=== PATIENT | female | born 1995 | race African-American/Black ===

== ENCOUNTER 2017-04-05 10:01 | Inpatient (IN) | payer MEDICAID ==
[2017-04-05 10:43] LABS: AMNISURE (ROM) POSITIVE (NEGATIVE)
[2017-04-05 10:47] LABS: APPEARANCE,URINE CLOUDY; BILIRUBIN,URINE NEGATIVE (NEGATIVE); COLOR,URINE YELLOW; GLUCOSE, URINE NEGATIVE (NEGATIVE); KETONES,URINE NEGATIVE (NEGATIVE); LEUKOCYTE ESTERASE,URINE TRACE (NEGATIVE); NITRITE,URINE NEGATIVE (NEGATIVE); PROTEIN,URINE NEGATIVE (NEGATIVE)
[2017-04-05 11:03] LABS: URINE AMPHETAMINES SCREEN NEGATIVE; URINE BARBITURATES SCREEN NEGATIVE; URINE BENZODIAZEPINES SCREEN NEGATIVE; URINE COCAINE SCREEN NEGATIVE; URINE MARIJUANA (THC) SCREEN NEGATIVE; URINE METHADONE SCREEN NEGATIVE; URINE PHENCYCLIDINE SCREEN NEGATIVE
[2017-04-05] MEDS ORDERED: RINGERS SOLUTION,LACTATED 1,000 ML IV PRN (11:19)
[2017-04-05] MEDS ORDERED: OXYTOCIN/NORMAL SALINE 20 UNIT/1,000 ML RTUINJ ONE ×2 (11:40→23:27)
[2017-04-05 11:46] LABS: ABSOLUTE LYMPHOCYTES (AUTO) 1.4 10^3/uL (0.5-4.7); ABSOLUTE MONOCYTES (AUTO) 0.5 10^3/uL (0.1-1.4); ABSOLUTE NEUT (AUTO) 5.5 10^3/uL (1.7-8.2); BASOPHILS % (AUTO) 0.3 % (0-2); EOSINOPHILS % (AUTO) 0.2 % (0-6); HEMOGLOBIN 11.1 g/dL (12.0-15.5); LYMPHOCYTES % (AUTO) 19.4 % (13-45); MEAN CORPUSCULAR HEMOGLOBIN 30.7 pg (27.0-33.4); MEAN CORPUSCULAR HGB CONC 33.5 g/dL (32.0-36.0); MEAN CORPUSCULAR VOLUME 92 fl (80-97); MONOCYTES % (AUTO) 6.6 % (3-13); PLATELET COUNT 212 10^3/uL (150-450); RED CELL DISTRIBUTION WIDTH 13.7 % (11.5-14.0); SEGMENTED NEUTROPHILS % (AUTO) 73.5 % (42-78); TOTAL CELLS COUNTED % (AUTO) 100 %; WHITE BLOOD COUNT 7.5 10^3/uL (4.0-10.5)
[2017-04-05] MEDS ORDERED: OXYTOCIN/NORMAL SALINE 20 UNIT/1,000 ML RTUINJ IV PRN (12:06)
[2017-04-05] MEDS ORDERED: PROMETHAZINE HCL INJ 25 MG/1 ML VIAL ONE (17:26)
[2017-04-05] MEDS ORDERED: NALBUPHINE HCL INJ 10 MG/1 ML AMPULE ONE (17:26)
[2017-04-05] MEDS ORDERED: EPHEDRINE SULFATE INJ 50 MG/1 ML AMPULE ONE (20:16)
[2017-04-05] MEDS ORDERED: FENTANYL CITRATE INJ/PF 100 MCG/2 ML AMPUL ONE (20:16)
[2017-04-05] MEDS ORDERED: PHENYLEPHRINE HCL INJ/PF 10 MG/1 ML SDV ONE (20:16)
[2017-04-05] MEDS ORDERED: BUPIVACAINE HCL 0.25 % INJ/PF (2.5 MG/1 ML) 30 ML VIAL ONE (20:17)
[2017-04-05] MEDS ORDERED: FENTANYL/BUPIVACAINE/NS/PF 200 MCG/100 ML RTUINJ EPI ONE (20:17)
[2017-04-05] MEDS ORDERED: LIDOCAINE 1% INJ-PF (10 MG/ML) 30 ML SDV ONE (23:15)
[2017-04-05] MEDS ORDERED: MISOPROSTOL 0.1 MG TABLET ONE (23:15)
[2017-04-05] MEDS ORDERED: MISOPROSTOL 0.2 MG TABLET ONE (23:31)
[2017-04-06] MEDS ORDERED: DIBUCAINE 1% OINTMENT 28 GM TP PRN (02:06)
[2017-04-06] MEDS ORDERED: GLYCERIN/WITCH HAZEL LEAF 1 EACH MED..PAD TP PRN (02:06)
[2017-04-06] MEDS ORDERED: DIPHENHYDRAMINE HCL 25 MG CAPSULE PO PRN (02:06)
[2017-04-06] MEDS ORDERED: ACETAMINOPHEN WITH CODEINE #3 TABLET PO PRN ×2 (02:06)
[2017-04-06] MEDS ORDERED: NA PHOS,M-B/NA PHOS,DI-BA (ADULT) 133 ML ENEMA PR PRN (02:06)
[2017-04-06] MEDS ORDERED: ZOLPIDEM TARTRATE 5 MG TABLET PO PRN (02:06)
[2017-04-06] MEDS ORDERED: PSEUDOEPHEDRINE HCL 30 MG TABLET PO PRN (02:06)
[2017-04-06] MEDS ORDERED: MEASLES,MUMPS&RUBELLA VACC/PF 0.5 ML VIAL SUBCUT PRN (02:06)
[2017-04-06] MEDS ORDERED: PROMETHAZINE HCL 25 MG SUPP.RECT PR PRN (02:06)
[2017-04-06] MEDS ORDERED: MAGNESIUM HYDROXIDE SUSP 30 ML UDCUP PO PRN (02:06)
[2017-04-06] MEDS ORDERED: PROMETHAZINE HCL INJ 25 MG/1 ML VIAL IV PRN (02:06)
[2017-04-06] MEDS ORDERED: ACETAMINOPHEN 650 MG SUPP.RECT PR PRN (02:06)
[2017-04-06] MEDS ORDERED: DIPH/PERTUSS(ACELL)/TETANUS VAC/PF 0.5 ML SYR (>=10YO) IM PRN (02:06)
[2017-04-06] MEDS ORDERED: PROMETHAZINE HCL 25 MG TABLET PO PRN (02:06)
[2017-04-06] MEDS ORDERED: BENZOCAINE/MENTHOL AEROSOL SPRAY 56 ML TOP PRN (02:06)
--- NOTE | 2017-04-06 02:13 | Delivery Summary ---
Del Sum A-C Datetime Report Generated by CPN: 04/06/2017 02:12 DELIVERY PERSONNEL DELIVERY PERSONNEL: [id number] Delivery Doctor:: Serjio Ellison MD Labor and Delivery Nurse:: Verito Carranza RN Labor and Delivery Nurse:: Eugenia Caban RN Fulling Mill Operator/REHAB CONSULTANT: Ginger Zoieekom, WAXED BAG MACHINE OPERATOR MATERNAL INFORMATION Delivery Anesthesia: Epidural Medications After Delivery: Pitocin Drip 20 Units/1000ml NSS; Other-Please Comment Meds After Delivery Comment: Lidocaine 1% Estimated Blood Loss (ml): 200 Maternal Complications: Precipitous Labor (<3hrs) Provider Comments: MELI LABOR SUMMARY EDC: 04/08/2017 00:00 No. Babies in Womb: 1 Attempted: No LABOR INFORMATION Reason for Induction: Premature Rupture of Membranes Onset of Labor: 04/05/2017 21:18 Complete Dilatation: 04/05/2017 23:33 Oxytocin: Induction Group B Beta Strep: Negative (Annotations: Data stored by N on behalf of user) Antibiotics # of Doses: 0 Antibiotics Time of Last Dose: n/a Name of Antibiotic Given: n/a Steroids Given: None Reason Steroids Not Administered: Not Applicable MEMBRANES Membranes Rupture Method: Spontaneous Rupture of Membranes: 04/05/2017 09:00 Length of Rupture (hr): 14.77 Amniotic Fluid Color: Clear Amniotic Fluid Amount: Small Amniotic Fluid Odor: Normal STAGES OF LABOR Stage 1 hr: 2 Stage 1 min: 15 Stage 2 hr: 0 Stage 2 min: 13 Stage 3 hr: 0 Stage 3 min: 3 Total Time in Labor hr: 2 Total Time in Labor min: 31 VAGINAL DELIVERY Episiotomy: None Laceration #1: Perineal Laceration Extension #1: Second Degree Laceration Repair: Yes Laceration Repair Note: repaired with 2-0 vycril Sponge Count Correct: Yes Sharps Count Correct: Yes CSECTION DELIVERY Primary Indication: N/A Secondary Indication: N/A CSection Incidence: N/A Labor: N/A Elective: N/A CSection Incision: N/A BABY A INFORMATION Infant Delivery Date/Time: 04/05/2017 23:46 Method of Delivery: Vaginal Born in Route : No : N/A Forceps: N/A Vacuum Extraction: N/A Shoulder Dystocia : No PRESENTATION/POSITION BABY A Presentation: Cephalic Cephalic Presentation: Vertex Vertex Position: Right Occipital Anterior Breech Presentation: N/A PLACENTA INFORMATION BABY A Placenta Delivery Time : 04/05/2017 23:49 Placenta Method of Delivery: Spontaneous Placenta Status: Delivered SCORES BABY A Heart Rate 1 min: >100 bpm Resp Effort 1 min: Good Cry Reflex Irritability 1 min: Cough or Sneeze or Pulls Away Muscle Tone 1 min: Active Motion Color 1 min: Body [place], Extremities Blue Resuscitation Effort 1 min: Tactile Stimulation SCORE 1 MIN: 9 Heart Rate 5 min: >100 bpm Resp Effort 5 min: Good Cry Reflex Irritability 5 min: Cough or Sneeze or Pulls Away Muscle Tone 5 min: Active Motion Color 5 min: Body [place], Extremities Blue Resuscitation Effort 5 min: Tactile Stimulation SCORE 5 MIN: 9 INFANT INFORMATION BABY A Gestational Age at Delivery: 39.4 Gestational Status: Full Term- 39- 40.6 Weeks Outcome : Liveborn Infant Condition : Stable Infant Sex: Female IDENTIFICATION BABY A Verification Date/Time: 04/06/2017 01:29 ID Band Number: [id number] Mother's Name Verified: Yes Infant RN Verifying Infant: B Caban, RN Additional Verifying Personnel: M Denton, RN WEIGHT/LENGTH BABY A Infant Birthweight (gm): 3025 Weight (lb): 6 Infant Weight (oz): 11 Length (in): 19.50 Length (cm): 49.53 CORD INFORMATION BABY A No. Cord Vessels: 3 Nuchal Cord : N/A Cord Blood Taken: Yes-For Storage (Mom's Blood type +) Infant Suction: None ASSESSMENT BABY A Complications: None Physical Findings at Delivery: Within Normal Limits; Extra Digit(s) Respirations: Appears Normal Skin to Skin: Yes Lay Out Machine Operator/ALS Called : No Infant Care By: B. Caban RN Transferred To: Remains with Mother BABY B INFORMATION : N/A SIGNATURES Signature: with User ID: [email or web address]
--- NOTE | 2017-04-06 02:17 | Admission Physical ---
Datetime Report Generated by CPN: 04/06/2017 02:17 CURRENT ADMISSION Chief Complaint: Suspected Ruptured Membranes Indication for Induction: Not Applicable Indication for Induction: Term, Intrauterine Admit Plan: Initiate Labor Augmentation Protocol ALLERGIES Medication Allergies: No Medication Allergies: No Known Allergies (04/05/2017) Latex: No Latex Allergies OBSTETRICAL HISTORY EDC: 04/08/2017 00:00 : 1 Para: 0 Term: 0 : 0 SAB: 0 IAB: 0 Ectopic: 0 Livin Cesareans: 0 VBACs: 0 Multiple Births: 0 Gestational Diabetes: No Rh Sensitization: No Incompetent Cervix: No JOHANA: No Infertility: No ART Treatment: No Uterine Anomaly: No IUGR: No Hx Previous C/S: No Macrosomia: No Hx Loss/Stillborn: No PIH: No Hx : No Placenta Previa/Abruption: No Depression/PP Depression: No PTL/PROM: No Post Hemorrhage: No Current Procedures: Ultrasound Obstetrical History Comments: G1- Current SEE RECORDS Alcohol: No Marijuana : No Cocaine: No Other Illicit Drugs: No Cigarettes: Never Smoker. [id number] MEDICAL HISTORY Diabetes: No Blood Transfusion: No Pulmonary Disease (Asthma, TB): No Breast Disease: No Hypertension: No Head Of History Surgery: No Heart Disease: No Hosp/Surgery: No Autoimmune Disorder: No Anesthetic Complications: No Kidney Disease: No Abnormal Pap Smear: No Neuro/Epilepsy: No Psychiatric Disorders: No Other Medical Diseases: No Hepatitis/Liver Disease: No Significant Family History: No Varicosities/Phlebitis: No Trauma/Violence : No Thyroid Dysfunction: No INFECTIOUS HISTORY Gonorrhea: No Genital Herpes: No Chlamydia: No Tuberculosis: No Syphilis: No Hepatitis: No HIV/AIDS Exposure: No Rash or Viral Illness: No HPV: No PHYSICAL EXAM General: Normal HEENT: Normal Neurologic: Normal Thyroid: Normal Heart: Normal Lungs: Normal Breast: Deferred Back: Normal Abdomen: Normal Genitourinary Exam: Normal Extremities: Normal DTRs: Normal Pelvic Type: Adequate Physical Exam Comments: SROM FETUS A EGA: 39.4 Monitoring: External US Decelerations: None PLANS FOR LABOR AND DELIVERY Labor and Delivery: None Pain Management: Natural Feeding Preference: Formula Benefit of Breast Feed Discussed: Yes Circumcision: N/A INFORMED CONSENT Signature: with User ID: [email or web address]
[2017-04-06] MEDS: IBUPROFEN 800 MG TABLET PO SCH ×3 (05:05→21:10)
--- NOTE | 2017-04-06 10:10 | PDOC PROGRESS REPORT ---
Subjective-OB Subjective: Post Delivery Day: 21 year old. Denies any needs at this time Doing well, family at BS, breast feeding, voiding, baby has extra digits, asking about plan for them, will discuss with Peds Physical Exam (OB) Vital Signs: Temp Pulse Resp BP Pulse Ox 98.3 F 74 18 140/56 H 100 04/06/17 09:20 04/06/17 07:30 04/06/17 07:30 04/06/17 07:30 04/06/17 07:30 Intake & Output 04/05/17 04/06/17 04/07/17 06:59 06:59 06:59 Weight 59.5 kg - Lochia Lochia Amount: Small 10-25 ml Lochia Color: Rubra/Red - Abdomen Description: Soft, Round Fundal Description: Firm, Midline Fundal Height: u/u - u/2 Objective-Diagnostic Laboratory: 04/05/17 11:24 04/05/17 04/05/17 04/05/17 10:10 11:24 11:24 WBC 7.5 RBC 3.60 L Hgb 11.1 L Hct 33.0 L MCV 92 MCH 30.7 MCHC 33.5 RDW 13.7 Plt Count 212 Seg Neutrophils % 73.5 Lymphocytes % 19.4 Monocytes % 6.6 Eosinophils % 0.2 Basophils % 0.3 Absolute Neutrophils 5.5 Absolute Lymphocytes 1.4 Absolute Monocytes 0.5 Absolute Eosinophils 0.0 Absolute Basophils 0.0 Urine Color YELLOW Urine Appearance CLOUDY Urine pH 5.0 Ur Specific Hanna 1.010 Urine Protein NEGATIVE Urine Glucose (UA) NEGATIVE Urine Ketones NEGATIVE Urine Blood NEGATIVE Urine Nitrite NEGATIVE Ur Leukocyte Esterase TRACE H Blood Type O POSITIVE Antibody Screen NEGATIVE Assessment and Plan(PN) - Assessment and Plan (1) Vaginal delivery Is this a current diagnosis for this admission?: Yes - Time Spent with Patient Time with patient: Less than 15 minutes Medications reviewed and adjusted accordingly: Yes - Disposition Anticipated Discharge: Home Within: within 48 hours
[2017-04-06] MEDS: SENNOSIDES/DOCUSATE 8.6-50 MG 1 EACH TABLET PO SCH (10:56)
[2017-04-06] MEDS: DOCUSATE SODIUM 100 MG CAPSULE PO SCH ×2 (10:57→17:50)
[2017-04-06] MEDS: FAMOTIDINE 20 MG TABLET PO SCH ×2 (10:57→21:10)
[2017-04-06] MEDS: PRENATAL VITAMIN W DHA CAPSULE PO SCH (10:58)
[2017-04-06] MEDS: FERROUS SULFATE 325 MG TABLET PO SCH ×2 (10:58→17:50)
[2017-04-07] MEDS: IBUPROFEN 800 MG TABLET PO SCH (06:55)
[2017-04-07 08:28] VITALS: BP 119/68
[2017-04-07] MEDS: PRENATAL VITAMIN W DHA CAPSULE PO SCH (09:00)
[2017-04-07] MEDS: FAMOTIDINE 20 MG TABLET PO SCH (09:00)
[2017-04-07] MEDS: SENNOSIDES/DOCUSATE 8.6-50 MG 1 EACH TABLET PO SCH (09:00)
[2017-04-07] MEDS: DOCUSATE SODIUM 100 MG CAPSULE PO SCH (09:01)
[2017-04-07] MEDS: FERROUS SULFATE 325 MG TABLET PO SCH (09:01)
--- NOTE | 2017-04-07 10:07 | PDOC PROGRESS REPORT ---
Subjective-OB Subjective: Post Delivery Day: 21 year old. Denies any needs at this time Doing well, no c/o, voiding, ambulating, Physical Exam (OB) Vital Signs: Temp Pulse Resp BP Pulse Ox 98.5 F 86 16 119/68 100 04/07/17 07:58 04/07/17 07:58 04/07/17 07:58 04/07/17 07:58 04/07/17 07:58 Intake & Output 04/06/17 04/07/17 04/08/17 06:59 06:59 06:59 Weight 59.5 kg - PIH/Pre-Eclampsia Clonus: Negative Headache: Absent Epigastric Pain: No Visual Changes: No - Lochia Lochia Amount: Scant < 10 ml Lochia Color: Rubra/Red - Abdomen Description: Soft Hernia Present: No Fundal Description: Firm, Midline Fundal Height: u/u - u/2 Assessment and Plan(PN) - Assessment and Plan (1) Vaginal delivery Is this a current diagnosis for this admission?: Yes - Time Spent with Patient Time with patient: Less than 15 minutes Medications reviewed and adjusted accordingly: Yes - Disposition Anticipated Discharge: Home Within: Other - home today
--- NOTE | 2017-04-07 10:10 | PDOC DISCHARGE SUMMARY ---
Final Diagnosis Discharge Date: 04/07/17 - Final Diagnosis (1) Vaginal delivery Is this a current diagnosis for this admission?: Yes Discharge Data - Discharge Medication Home Medications: Prenat 115/Iron Fum/Folic/Dss [ 19 Tablet] 1 tab PO DAILY 04/05/17 Gestational Age: 39.4 Reason(s) for Admission: Induction of Labor, PROM Procedures: NST, Ultrasound Intrapartum Procedure(s): Spontaneous Vaginal Delivery Complication(s): Laceration-Perineal Laceration-Degree: 2nd - Data Baby 1 Female at 1 minute: 9 at 5 minutes: 9 Weight: 3.033 kg Home with Mother: Yes Complications: No - Diagnosis Test Laboratory: Temp Pulse Resp BP Pulse Ox 98.5 F 86 16 119/68 100 04/07/17 07:58 04/07/17 07:58 04/07/17 07:58 04/07/17 07:58 04/07/17 07:58 04/05/17 04/05/17 10:10 11:24 RBC 3.60 L Hgb 11.1 L Hct 33.0 L Urine Opiates Screen NEGATIVE - Discharge information/Instructions Discharge Activity: Activity As Tolerated, No Lifting/Push/Pulling, Pelvic Rest Discharge Diet: As Tolerated, Regular Disposition: HOME, SELF-CARE Follow up with: [facility] in: 4, Weeks
[2017-04-07 10:12] LABS: HEMATOCRIT 27.9 % (36.0-47.0); MEAN CORPUSCULAR HEMOGLOBIN 30.4 pg (27.0-33.4); MEAN CORPUSCULAR VOLUME 92 fl (80-97); PLATELET COUNT 185 10^3/uL (150-450); RED BLOOD COUNT 3.03 10^6/uL (3.72-5.28); RED CELL DISTRIBUTION WIDTH 14.1 % (11.5-14.0)
[2017-04-07 10:13] LABS: HEMOGLOBIN 9.2 g/dL (12.0-15.5)
[2017-04-07 10:28] LABS: WHITE BLOOD COUNT 16.1 10^3/uL (4.0-10.5)
== END 2017-04-07 12:23 | disposition home or self-care (01) | DRG 775 ==
LOC: LC 10:01 → LR 10:58 → 2S 04-06 02:16
PROVIDERS: ADMIT Obstetrics & Gynecology Gynecology; ATTEND Obstetrics & Gynecology Gynecology
PROC: 10E0XZZ Delivery of Products of Conception, External Approach (ICD-10-PCS; principal; 2017-04-05)
PROC: 0KQM0ZZ Repair Perineum Muscle, Open Approach (ICD-10-PCS; 2017-04-05)
DX: O62.3 Precipitate labor (principal); O99.02 Anemia complicating childbirth; D57.3 Sickle-cell trait; O70.1 Second degree perineal laceration during delivery; Z3A.39 39 weeks gestation of pregnancy; Z37.0 Single live birth
CPT/HCPCS: 36415; 59025; 80307; 81005; 84112; 85025; 85027; 86592; 86850; 86900; 86901; 94760; J2300; J2370; J2550; J2590; J3010; J3490

== ENCOUNTER 2018-09-01 16:39 | Inpatient (IN) | payer MEDICAID ==
[2018-09-01] MEDS ORDERED: DINOPROSTONE 10 MG VAGINAL INSERT.SR PV PRN (18:22)
[2018-09-01] MEDS ORDERED: RINGERS SOLUTION,LACTATED 300 ML IV ONE (18:22)
[2018-09-01 18:37] LABS: ABSOLUTE LYMPHOCYTES (AUTO) 1.5 10^3/uL (0.5-4.7); ABSOLUTE MONOCYTES (AUTO) 0.4 10^3/uL (0.1-1.4); ABSOLUTE NEUT (AUTO) 5.3 10^3/uL (1.7-8.2); BASOPHILS % (AUTO) 0.1 % (0-2); EOSINOPHILS % (AUTO) 0.2 % (0-6); HEMATOCRIT 29.9 % (36.0-47.0); HEMOGLOBIN 10.1 g/dL (12.0-15.5); LYMPHOCYTES % (AUTO) 20.4 % (13-45); MEAN CORPUSCULAR HEMOGLOBIN 30.7 pg (27.0-33.4); MEAN CORPUSCULAR HGB CONC 33.8 g/dL (32.0-36.0); MEAN CORPUSCULAR VOLUME 91 fl (80-97); MONOCYTES % (AUTO) 5.4 % (3-13); PLATELET COUNT 221 10^3/uL (150-450); RED CELL DISTRIBUTION WIDTH 13.1 % (11.5-14.0); SEGMENTED NEUTROPHILS % (AUTO) 73.9 % (42-78); TOTAL CELLS COUNTED % (AUTO) 100 %; WHITE BLOOD COUNT 7.2 10^3/uL (4.0-10.5)
--- NOTE | 2018-09-01 18:43 | Admission Physical ---
Datetime Report Generated by CPN: 09/01/2018 18:43 CURRENT ADMISSION Hx Assessment: The History has been Reviewed and is Current Chief Complaint: Sent from OB Office for Evaluation and Treatment - Please Specify Chief Complaint Other: non-reactive NST from office with IUGR @ 7%ile with need for IOL Indication for Induction: IUGR Admit Impression : Term, Intrauterine Admit Plan: Admit to Unit; Initiate Labor Induction Protocol ALLERGIES Medication Allergies: No Medication Allergies: No Known Allergies (09/01/2018) Latex: No Latex Allergies OBSTETRICAL HISTORY EDC: 09/03/2018 00:00 : 2 Para: 1 Livin Gestational Diabetes: No Rh Sensitization: No Incompetent Cervix: No JOHANA: No Infertility: No ART Treatment: No Uterine Anomaly: No IUGR: No Hx Previous C/S: No Macrosomia: No Hx Loss/Stillborn: No PIH: No Hx : No Placenta Previa/Abruption: No Depression/PP Depression: No PTL/PROM: No Post Hemorrhage: No Current Procedures: Ultrasound; NST Obstetrical History Comments: G1: 39.4, G2: current SEE RECORDS Alcohol: No Marijuana : No Cocaine: No Other Illicit Drugs: No Cigarettes: Never Smoker. [id number] MEDICAL HISTORY Diabetes: No Blood Transfusion: No Pulmonary Disease (Asthma, TB): No Breast Disease: No Hypertension: No Cutter Operator Surgery: No Heart Disease: No Hosp/Surgery: Yes Autoimmune Disorder: No Anesthetic Complications: No Kidney Disease: No Abnormal Pap Smear: No Neuro/Epilepsy: No Psychiatric Disorders: No Other Medical Diseases: No Hepatitis/Liver Disease: No Significant Family History: No Varicosities/Phlebitis: No Trauma/Violence : No Thyroid Dysfunction: No Medical History Comments: epidural last time only on one side INFECTIOUS HISTORY Gonorrhea: No Genital Herpes: No Chlamydia: Yes Tuberculosis: No Syphilis: No Hepatitis: No HIV/AIDS Exposure: No Rash or Viral Illness: No HPV: No Infectious History Comments: chlamydia: 03/2018 PHYSICAL EXAM General: Normal Heart: Normal Lungs: Normal Pelvic Type: Adequate Physical Exam Comments: proven to 6lbs 11 oz Vital Signs: Reviewed; Within Normal Limits VAGINAL EXAM Dilatation: 0 Effacement: 0 Station: -3 Contraction Comments: none MEMBRANES Membranes: Intact FETUS A EGA: 39.5 Monitoring: External US Decelerations: None FHR Category: Category I Presentation: Vertex Admit Comment: 23yo into L_D from office with a nonreactive NST and need for delivery due to IUGR <10%ile @ 39w. Pt is O pos, RI, GBS neg with sickle cell trait and pos chlamydia @ NOB visit and neg CARLOS. Plan is to place cervidil. Reactive NST on admission. Reviewed poc with pt and family. Dr. Schultz is the OB construction job cost estimator today and agrees with poc. PLANS FOR LABOR AND DELIVERY Labor and Delivery: None Pain Management: Medications Feeding Preference: Both Benefit of Breast Feed Discussed: Yes Circumcision: N/A INFORMED CONSENT Assignment: Ida Schultz MD Signature: with User ID: [email or web address] : with User ID: [email or web address]
[2018-09-01 18:47] LABS: AMORPHOUS SEDIMENT,URINE TRACE /HPF; APPEARANCE,URINE CLOUDY; BILIRUBIN,URINE NEGATIVE (NEGATIVE); COLOR,URINE YELLOW; GLUCOSE, URINE NEGATIVE (NEGATIVE); KETONES,URINE TRACE mg/dL (NEGATIVE); LEUKOCYTE ESTERASE,URINE LARGE (NEGATIVE); NITRITE,URINE NEGATIVE (NEGATIVE); PROTEIN,URINE NEGATIVE (NEGATIVE); URINE SPECIFIC GRAVITY 1.005; UROBILINOGEN,URINE NEGATIVE mg/dL (<2.0)
[2018-09-01 18:52] LABS: URINE AMPHETAMINES SCREEN NEGATIVE; URINE BARBITURATES SCREEN NEGATIVE; URINE BENZODIAZEPINES SCREEN NEGATIVE; URINE COCAINE SCREEN NEGATIVE; URINE MARIJUANA (THC) SCREEN NEGATIVE; URINE METHADONE SCREEN NEGATIVE; URINE PHENCYCLIDINE SCREEN NEGATIVE
[2018-09-01] MEDS ORDERED: DINOPROSTONE 10 MG VAGINAL INSERT.SR ONE (20:53)
[2018-09-01] MEDS: RINGERS SOLUTION,LACTATED 1,000 ML IV PRN (21:07)
[2018-09-01] MEDS ORDERED: ZOLPIDEM TARTRATE 5 MG TABLET PO ONE (23:29)
[2018-09-01] MEDS ORDERED: ZOLPIDEM TARTRATE 5 MG TABLET ONE (23:29)
[2018-09-02] MEDS ORDERED: NALBUPHINE HCL INJ 10 MG/1 ML AMPULE INJ ONE (06:03)
[2018-09-02] MEDS ORDERED: PROMETHAZINE HCL INJ 25 MG/1 ML VIAL IV ONE (06:03)
[2018-09-02] MEDS ORDERED: PROMETHAZINE HCL INJ 25 MG/1 ML VIAL ONE (06:05)
[2018-09-02] MEDS ORDERED: NALBUPHINE HCL INJ 10 MG/1 ML AMPULE ONE (06:05)
[2018-09-02] MEDS: RINGERS SOLUTION,LACTATED 1,000 ML IV PRN (06:09)
[2018-09-02] MEDS ORDERED: EPHEDRINE SULFATE INJ 50 MG/1 ML AMPULE ONE (10:27)
[2018-09-02] MEDS ORDERED: MISOPROSTOL 0.2 MG TABLET ONE (10:27)
[2018-09-02] MEDS ORDERED: BUPIVACAINE HCL 0.25 % INJ/PF (2.5 MG/1 ML) 30 ML VIAL ONE (10:28)
[2018-09-02] MEDS ORDERED: OXYTOCIN/NORMAL SALINE 20 UNIT/1,000 ML RTUINJ ONE (10:28)
[2018-09-02] MEDS ORDERED: LIDOCAINE 1% INJ-PF (10 MG/ML) 30 ML SDV ONE (10:28)
[2018-09-02] MEDS ORDERED: FENTANYL/BUPIVACAINE/NS/PF 300 MCG/150 ML RTUINJ EPI ONE (10:28)
[2018-09-02] MEDS ORDERED: ZOLPIDEM TARTRATE 5 MG TABLET PO PRN (15:10)
[2018-09-02] MEDS ORDERED: PROMETHAZINE HCL 25 MG TABLET PO PRN (15:10)
[2018-09-02] MEDS ORDERED: PROMETHAZINE HCL 25 MG SUPP.RECT PR PRN (15:10)
[2018-09-02] MEDS ORDERED: DIPH/PERTUSS(ACELL)/TETANUS VAC/PF 0.5 ML SYR (>=10YO) IM PRN (15:10)
[2018-09-02] MEDS ORDERED: PSEUDOEPHEDRINE HCL 30 MG TABLET PO PRN (15:10)
[2018-09-02] MEDS ORDERED: NA PHOS,M-B/NA PHOS,DI-BA (ADULT) 133 ML ENEMA PR PRN (15:10)
[2018-09-02] MEDS ORDERED: GLYCERIN/WITCH HAZEL LEAF 1 EACH MED..WIPE TP PRN (15:10)
[2018-09-02] MEDS ORDERED: PROMETHAZINE HCL INJ 25 MG/1 ML VIAL IV PRN (15:10)
[2018-09-02] MEDS ORDERED: OXYTOCIN/NORMAL SALINE 20 UNIT/1,000 ML RTUINJ IV PRN (15:10)
[2018-09-02] MEDS ORDERED: MEASLES,MUMPS&RUBELLA VACC/PF 0.5 ML VIAL SUBCUT PRN (15:10)
[2018-09-02] MEDS ORDERED: DIBUCAINE 1% OINTMENT 56 GM TP PRN (15:10)
[2018-09-02] MEDS ORDERED: DIPHENHYDRAMINE HCL 25 MG CAPSULE PO PRN (15:10)
[2018-09-02] MEDS ORDERED: ACETAMINOPHEN 650 MG SUPP.RECT PR PRN (15:10)
[2018-09-02] MEDS ORDERED: BENZOCAINE/MENTHOL AEROSOL SPRAY 56 ML TOP PRN (15:10)
[2018-09-02] MEDS ORDERED: ACETAMINOPHEN WITH CODEINE #3 TABLET PO PRN ×2 (15:10)
[2018-09-02] MEDS ORDERED: MAGNESIUM HYDROXIDE SUSP 30 ML UDCUP PO PRN (15:10)
--- NOTE | 2018-09-02 17:19 | Delivery Summary ---
Del Sum A-C Datetime Report Generated by CPN: 09/02/2018 17:19 DELIVERY PERSONNEL DELIVERY PERSONNEL: [id number] Delivery Doctor:: Joselin Ybarra MD Labor and Delivery Nurse:: Daniela Floyd RNquality tech Nurse:: Annabelle Matias RN Press Supervisor:: [facility] RN MATERNAL INFORMATION Delivery Anesthesia: Epidural Medications After Delivery: Pitocin Bolus-Please Comment Estimated Blood Loss (ml): 250 Maternal Complications: None LABOR SUMMARY EDC: 09/03/2018 00:00 No. Babies in Womb: 1 Attempted: No Labor Anesthesia: Epidural LABOR INFORMATION Reason for Induction: Intrauterine Growth Retardation Onset of Labor: 09/02/2018 10:10 Complete Dilatation: 09/02/2018 14:47 Cervical Ripening Agents: Cervidil Oxytocin: N/A Group B Beta Strep: negative Antibiotics # of Doses: 0 Steroids Given: None Reason Steroids Not Administered: Not Applicable MEMBRANES Membranes Rupture Method: Artificial Rupture of Membranes: 09/02/2018 10:22 Length of Rupture (hr): 4.52 Amniotic Fluid Color: Clear Amniotic Fluid Amount: Small Amniotic Fluid Odor: Normal STAGES OF LABOR Stage 1 hr: 4 Stage 1 min: 37 Stage 2 hr: 0 Stage 2 min: 6 Stage 3 hr: 0 Stage 3 min: 5 Total Time in Labor hr: 4 Total Time in Labor min: 48 VAGINAL DELIVERY Episiotomy: None Laceration #1: Perineal Laceration Extension #1: First Degree Laceration #2: None Laceration Extension #2: N/A Laceration #3: None Laceration Extension #3: N/A Laceration Repair: Yes Laceration Repair Note: repair with 2 interrupted sutures of 3-0 chromic suture. Sponge Count Correct: Vaginal Sweep Performed Sharps Count Correct: Yes CSECTION DELIVERY Primary Indication: N/A Secondary Indication: N/A CSection Incidence: N/A Labor: N/A Elective: N/A CSection Incision: N/A BABY A INFORMATION Delivery Date/Time: 09/02/2018 14:53 Method of Delivery: Vaginal Born in Route : No : N/A Forceps: N/A Vacuum Extraction: N/A Shoulder Dystocia : No PRESENTATION/POSITION BABY A Presentation: Cephalic Cephalic Presentation: Vertex Vertex Position: Right Occipital Anterior Breech Presentation: N/A PLACENTA INFORMATION BABY A Placenta Delivery Time : 09/02/2018 14:58 Placenta Method of Delivery: Spontaneous Placenta Status: Delivered SCORES BABY A Heart Rate 1 min: >100 bpm Resp Effort 1 min: Good Cry Reflex Irritability 1 min: Cough or Sneeze or Pulls Away Muscle Tone 1 min: Active Motion Color 1 min: Body [place], Extremities Blue Resuscitation Effort 1 min: Tactile Stimulation SCORE 1 MIN: 9 Heart Rate 5 min: >100 bpm Resp Effort 5 min: Good Cry Reflex Irritability 5 min: Cough or Sneeze or Pulls Away Muscle Tone 5 min: Active Motion Color 5 min: Body [place], Extremities Blue Resuscitation Effort 5 min: Tactile Stimulation SCORE 5 MIN: 9 INFANT INFORMATION BABY A Gestational Age at Delivery: 39.6 Gestational Status: Full Term- 39- 40.6 Weeks Infant Outcome : Liveborn Condition : Stable Sex: Female IDENTIFICATION BABY A Verification Date/Time: 09/02/2018 15:12 ID Band Number: [id number] Mother's Name Verified: Yes RN Verifying Infant: Dinorah Matias, RN CarlosKanwal Floyd, RN CORD INFORMATION BABY A No. Cord Vessels: 3 Nuchal Cord : N/A Cord Blood Taken: Yes-For Eval (Mom's Blood Type - or O+) Suction: None ASSESSMENT BABY A Infant Complications: None Physical Findings at Delivery: Within Normal Limits Skin to Skin: Yes Skin to Skin Time (min): 30 Care By: Penny Alford, RN Transferred To: Remains with Mother BABY B INFORMATION : N/A SIGNATURES Signature: with User ID: [email or web address]
[2018-09-02] MEDS: DOCUSATE SODIUM 100 MG CAPSULE PO SCH (21:24)
[2018-09-02] MEDS: FERROUS SULFATE 325 MG TABLET PO SCH (21:24)
[2018-09-02] MEDS: IBUPROFEN 800 MG TABLET PO SCH (21:24)
[2018-09-02] MEDS: FAMOTIDINE 20 MG TABLET PO SCH (21:44)
[2018-09-03] MEDS: IBUPROFEN 800 MG TABLET PO SCH ×3 (06:16→21:23)
[2018-09-03 08:50] LABS: HEMATOCRIT 25.4 % (36.0-47.0); HEMOGLOBIN 8.7 g/dL (12.0-15.5); MEAN CORPUSCULAR HGB CONC 34.3 g/dL (32.0-36.0); MEAN CORPUSCULAR VOLUME 90 fl (80-97); PLATELET COUNT 185 10^3/uL (150-450); RED BLOOD COUNT 2.81 10^6/uL (3.72-5.28); RED CELL DISTRIBUTION WIDTH 13.6 % (11.5-14.0)
[2018-09-03] MEDS: PRENATAL VITAMIN W DHA CAPSULE PO SCH (09:33)
[2018-09-03] MEDS: DOCUSATE SODIUM 100 MG CAPSULE PO SCH ×2 (09:33→17:58)
[2018-09-03] MEDS: SENNOSIDES/DOCUSATE 8.6-50 MG 1 EACH TABLET PO SCH (09:33)
[2018-09-03] MEDS: FAMOTIDINE 20 MG TABLET PO SCH ×2 (09:33→21:23)
[2018-09-03] MEDS: FERROUS SULFATE 325 MG TABLET PO SCH ×2 (09:33→17:58)
--- NOTE | 2018-09-03 10:35 | PDOC PROGRESS REPORT ---
Subjective-OB Progress Note for:: 09/03/18 Physical Exam (OB) Vital Signs: Temp Pulse Resp BP Pulse Ox 97.6 F 70 15 101/63 100 09/03/18 07:29 09/03/18 07:29 09/03/18 07:29 09/03/18 07:29 09/03/18 07:29 Intake & Output 09/02/18 09/03/18 09/04/18 06:59 06:59 06:59 Intake Total 1000 Balance 1000 Weight 57.8 kg - PIH/Pre-Eclampsia Clonus: Negative Headache: Absent Epigastric Pain: No Visual Changes: No - Lochia Lochia Amount: Small 10-25 ml Lochia Color: Rubra/Red - Abdomen Description: Tender, Soft Hernia Present: No Bowel Sounds: Normoactive Flatus Presence: Present Stool: No Fundal Description: Firm, Midline Fundal Height: u/u - u/2 Objective-Diagnostic Laboratory: 09/03/18 07:53 09/03/18 07:53 WBC 14.0 H RBC 2.81 L Hgb 8.7 L Hct 25.4 L MCV 90 MCH 31.0 MCHC 34.3 RDW 13.6 Plt Count 185
[2018-09-04] MEDS: IBUPROFEN 800 MG TABLET PO SCH (05:05)
[2018-09-04] MEDS: SENNOSIDES/DOCUSATE 8.6-50 MG 1 EACH TABLET PO SCH (09:22)
[2018-09-04] MEDS: DOCUSATE SODIUM 100 MG CAPSULE PO SCH (09:22)
[2018-09-04] MEDS: PRENATAL VITAMIN W DHA CAPSULE PO SCH (09:22)
[2018-09-04] MEDS: FAMOTIDINE 20 MG TABLET PO SCH (09:22)
[2018-09-04] MEDS: FERROUS SULFATE 325 MG TABLET PO SCH (09:23)
--- NOTE | 2018-09-04 12:07 | PDOC PROGRESS REPORT ---
Subjective-OB Progress Note for:: 09/04/18 Subjective: Doing well, no c/o,ready to go home, breast/bottle Physical Exam (OB) Vital Signs: Temp Pulse Resp BP Pulse Ox 97.9 F 79 16 120/81 100 09/04/18 08:25 09/04/18 08:25 09/04/18 08:25 09/04/18 08:25 09/04/18 08:25 Intake & Output 09/03/18 09/04/18 09/05/18 06:59 06:59 06:59 Intake Total 1300 Balance 1300 - PIH/Pre-Eclampsia Clonus: Negative Headache: Absent Epigastric Pain: No Visual Changes: No - Bilateral Tubal Ligation Dressing Removed: Yes - Lochia Lochia Amount: Scant < 10 ml Lochia Color: Rubra/Red - Abdomen Description: Soft Hernia Present: No Fundal Description: Firm, Midline Fundal Height: u/u - u/2 Objective-Diagnostic Laboratory: 09/03/18 07:53 Assessment and Plan(PN) - Assessment and Plan (1) Anemia Qualifiers: Anemia type: iron deficiency Is this a current diagnosis for this admission?: Yes (2) IUGR (intrauterine growth retardation), delivered, current hospitalization Is this a current diagnosis for this admission?: Yes (3) Delivery normal Is this a current diagnosis for this admission?: Yes (4) Vaginal delivery Is this a current diagnosis for this admission?: Yes - Time Spent with Patient Time with patient: Less than 15 minutes Medications reviewed and adjusted accordingly: Yes - Disposition Anticipated Discharge: Home
--- NOTE | 2018-09-04 12:13 | PDOC DISCHARGE SUMMARY ---
Final Diagnosis Discharge Date: 09/04/18 - Final Diagnosis (1) Anemia Is this a current diagnosis for this admission?: Yes (2) IUGR (intrauterine growth retardation), delivered, current hospitalization Is this a current diagnosis for this admission?: Yes (3) Delivery normal Is this a current diagnosis for this admission?: Yes (4) Vaginal delivery Is this a current diagnosis for this admission?: Yes Discharge Data - Discharge Medication Home Medications: Prenat 115/Iron Fum/Folic/Dss [ 19 Tablet] 1 tab PO DAILY 04/05/17 Gestational Age: 39.6 Reason(s) for Admission: Induction of Labor Admission Note: IUGR Procedures: NST, Ultrasound Intrapartum Procedure(s): Spontaneous Vaginal Delivery Complication(s): Laceration-Perineal Laceration-Degree: 1st - [place] Data Baby 1 Female at 1 minute: 9 at 5 minutes: 9 Weight: 2.58 kg Home with Mother: Yes Complications: No - Diagnosis Test Laboratory: Temp Pulse Resp BP Pulse Ox 97.9 F 79 16 120/81 100 09/04/18 08:25 09/04/18 08:25 09/04/18 08:25 09/04/18 08:25 09/04/18 08:25 09/01/18 09/01/18 09/03/18 17:23 18:10 07:53 RBC 3.30 L 2.81 L Hgb 10.1 L 8.7 L Hct 29.9 L 25.4 L Urine Opiates Screen NEGATIVE - Discharge information/Instructions Discharge Activity: Activity As Tolerated, No Lifting Over 10 Pounds, No Lifting/Push/Pulling, Pelvic Rest Discharge Diet: As Tolerated, Regular Disposition: HOME, SELF-CARE Follow up with: [facility] in: 4, Weeks
[2018-09-04 12:15] VITALS: BP 116/60
== END 2018-09-04 13:48 | disposition home or self-care (01) | DRG 807 ==
LOC: LC 16:39 → LR 18:17 → 2S 09-02 17:55
PROVIDERS: ADMIT Obstetrics & Gynecology; ATTEND Obstetrics & Gynecology
PROC: 10E0XZZ Delivery of Products of Conception, External Approach (ICD-10-PCS; principal; 2018-09-02)
PROC: 0HQ9XZZ Repair Perineum Skin, External Approach (ICD-10-PCS; 2018-09-02)
PROC: 10907ZC Drainage of Amniotic Fluid, Therapeutic from Products of Conception, Via Natural or Artificial Opening (ICD-10-PCS; 2018-09-02)
DX: O36.5930 Maternal care for other known or suspected poor fetal growth, third trimester, not applicable or unspecified (principal); Z37.0 Single live birth; O70.0 First degree perineal laceration during delivery; O99.02 Anemia complicating childbirth; D50.9 Iron deficiency anemia, unspecified; Z3A.39 39 weeks gestation of pregnancy; Z86.19 Personal history of other infectious and parasitic diseases
CPT/HCPCS: 36415; 80307; 81001; 85025; 85027; 86592; 86850; 86900; 86901; J2300; J2550; J2590; J3010; J3490

== ENCOUNTER 2019-09-19 09:54 | Emergency (ER) | payer MEDICAID ==
[2019-09-19 10:05] VITALS: BP 145/96
[2019-09-19] MEDS ORDERED: PREDNISONE 20 MG TABLET PO ONE (10:15)
[2019-09-19] MEDS ORDERED: FAMOTIDINE 20 MG TABLET PO ONE (10:15)
--- NOTE | 2019-09-19 10:22 | ER Document Report ---
ED Skin Rash/Insect Bite/Abscs - General Chief Complaint: Rash Stated Complaint: RASH/SKIN SORES,SWELLING Time Seen by Provider: 09/19/19 10:14 Mode of Arrival: Ambulatory Information source: Patient Notes: Female presented to ED for rash to the right upper lip the left arm and in the right leg. She said is been there for about 2 days. She states she has not been applied but her boyfriend is working construction. The rash is vesicular bubbly in patches. I have treated the patient with steroid Pepcid and instructed her to please go and get Benadryl and either calamine lotion or Caladryl lotion to put on the areas. This is poison germaine. Patient has verbalized understanding and agreement with treatment plan TRAVEL OUTSIDE OF THE [place] IN LAST 30 DAYS: No - HPI Patient complains to provider of: Skin rash/lesion Onset: Other Onset/Duration: Gradual - 2 days Quality of pain: Other - Itchy Severity: Mild Skin Character: Rash Quality of rash: Itchy Identify cause: Yes Exacerbated by: Denies Relieved by: Denies Similar symptoms previously: Yes Recently seen / treated by doctor: No - Related Data Allergies/Adverse Reactions: No Known Allergies Allergy (Verified 09/19/19 10:12) Past Medical History - Social History Smoking Status: Never Smoker Chew tobacco use (# tins/day): No Frequency of alcohol use: Occasional Drug Abuse: None Lives with: Spouse/Significant other Family History: Reviewed & Not Pertinent Patient has homicidal ideation: No - Past Medical History Cardiac Medical History: Reports: None Pulmonary Medical History: Reports: None EENT Medical History: Reports: None Neurological Medical History: Reports: None Endocrine Medical History: Reports: None Renal/ Medical History: Reports: None Malignancy Medical History: Reports: None GI Medical History: Reports: None Musculoskeletal Medical History: Reports None Skin Medical History: Reports None Psychiatric Medical History: Reports: None Traumatic Medical History: Reports: None Infectious Medical History: Reports: None Surgical Hx: Negative Past Surgical History: Reports: None - Immunizations Immunizations up to date: Yes Review of Systems - Review of Systems Constitutional: No symptoms reported EENT: No symptoms reported Cardiovascular: No symptoms reported Respiratory: No symptoms reported Gastrointestinal: No symptoms reported Genitourinary: No symptoms reported Female Genitourinary: No symptoms reported Musculoskeletal: No symptoms reported Skin: No symptoms reported, Rash - Right upper lip, left arm, right leg Hematologic/Lymphatic: No symptoms reported Neurological/Psychological: No symptoms reported -: Yes All other systems reviewed and negative Physical Exam - Vital signs Vitals: Temp Pulse Resp BP Pulse Ox 98.5 F 64 16 145/96 H 100 09/19/19 10:02 09/19/19 10:02 09/19/19 10:02 09/19/19 10:02 09/19/19 10:02 Interpretation: Normal - General General appearance: Appears well, Alert - HEENT Head: Normocephalic, Atraumatic Eyes: Normal Pupils: PERRL - Respiratory Respiratory status: No respiratory distress Chest status: Nontender Breath sounds: Normal Chest palpation: Normal - Cardiovascular Rhythm: Regular Heart sounds: Normal auscultation Murmur: No - Abdominal Inspection: Normal Distension: No distension Bowel sounds: Normal Tenderness: Nontender Organomegaly: No organomegaly - Back Back: Normal, Nontender - Extremities General upper extremity: Normal inspection, Nontender, Normal color, Normal ROM, Normal temperature General lower extremity: Normal inspection, Nontender, Normal color, Normal ROM, Normal temperature, Normal weight bearing. No: Marixa's sign - Neurological Neuro grossly intact: Yes Cognition: Normal Orientation: AAOx4 Baker Coma Scale Eye Opening: Spontaneous Baker Coma Scale Verbal: Oriented Gavin Coma Scale Motor: Obeys Commands Gavin Coma Scale Total: 15 Speech: Normal Motor strength normal: LUE, RUE, LLE, RLE Sensory: Normal - Psychological Associated symptoms: Normal affect, Normal mood - Skin Skin Temperature: Warm Skin Moisture: Dry Skin Color: Normal Skin irregularity: Rash - Poison germaine to the right upper lip above the lip the left arm antecubital area and the right leg. She states she has had about 2 days. She states she does not go outside much but her significant other does work in construction Location of irregularity: Face, Extremities Character of irregularity: Vesicular, Erythematous Irregularity with: Weeping Course - Re-evaluation Re-evalutation: 09/19/19 10:26 Patient was treated with 60 mg of prednisone 20 mg of Pepcid and instructed to go straight to the store to get some Benadryl and calamine lotion or Caladryl lotion to protect the area. She was given a prescription for Pepcid Benadryl and prednisone. Patient was discharged home to follow-up with her primary care doctor. - Vital Signs Vital signs: Temp Pulse Resp BP Pulse Ox 98.5 F 64 16 145/96 H 100 09/19/19 10:10 09/19/19 10:02 09/19/19 10:02 09/19/19 10:02 09/19/19 10:02 Discharge - Discharge Clinical Impression: Poison germaine Condition: Stable Disposition: HOME, SELF-CARE Additional Instructions: Poison Germaine Poison germaine and poison oak can cause an itchy rash. This is called contact dermatitis. It's an allergy to an oil in the plant's leaves. The oil can be spread from clothing to skin, from pets to humans, or from one spot on the body to another. Washing thoroughly with soap immediately after exposure can prevent the rash. (Clothing should be washed as well.) If the oil is not removed, an itchy rash develops a few days after the exposure. Blisters may develop. Two to three weeks may be required for healing. Generally, treatment consists of: (1) an immediate thorough washing with soap to remove the oil, (2) application of a cortisone cream, and (3) antihistamines for itching. If the reaction is particularly severe, oral cortisone medicine may be required. If there are oozing areas, these can be soaked in epsom salts or John's solution. Call the doctor if the rash worsens despite treatment, or if signs of infection occur such as spreading redness, red streaks, swollen glands, swelling, or fever. STEROID MEDICATION: You have been given a medicine of the cortisone/steroid class. This medication is used to control inflammation or allergy. It is usually only given for a short period of time, until the acute process subsides. There are usually no side effects from short-term use of cortisone-like medications. Some persons feel an increased sense of well-being and are not sleepy at bedtime. Long-term use of cortisone medications is best avoided, unless required for a severe condition. If your condition does not remit, or relapses after the course of corticosteroid medication, you should consult your physician. ACID-SUPPRESSING MEDICATION: You have a prescription for medicine which reduces the stomach's secretion of acid. Examples include Zantac, Tagament, and Pepcid. These drugs are often used to allow healing of ulcers or esophagitis. They may be needed to prevent recurrence of ulcers in some patients, or to prevent damage from acid reflux in the esophagus. Take all medication as prescribed, even after the pain is gone. Regular antacids may be added as needed if you have symptoms while taking this medicine. These medications sometimes are prescribed for allergic reactions because they have anti-histaminic effects and relieve the rash and itching of the reaction. There are usually no side effects from this medication. But, in rare cases and particularly in the elderly, serious problems can occur. Contact your doctor if there is fever, rash, hallucinations, confusion, or unusual bruising. Contact your doctor at once if you develop lightheadedness, black or bloody stool, or bloody vomitus. ANTIHISTAMINES: An antihistamine has been given and/or prescribed to control your symptoms. Antihistamines are used for many reasons, including itching, watering eyes, runny nose, allergic swelling, hives, and insect stings. Antihistamines may cause drowsiness, especially with the first dose. Do not operate machinery or drive while under the effects of the medication. Other common side effects include dry mouth and eyes. In older persons, antihistamines can occasionally cause urinary retention, constipation, and trouble focusing the eyes. Do not combine the medication with alcohol, or with any other medication without talking to your doctor. USE OF DIPHENHYDRAMINE: The use of diphenhydramine (Benadryl) has been recommended to control allergic symptoms. The 25 mg strength is available over- the-counter, as well as the elixir. This antihistamine is used for many symptoms. It's useful for itching, watering eyes and nose, allergic swelling, hives, and insect stings. The medication can be repeated four times daily. Age Elixir (12.5 mg/tsp) 25 mg pill 2-3 yr 1/2 tsp 4-8 yr 1 tsp 9-14 yr 2 tsp one tab adult 1-2 tabs Antihistamines may cause drowsiness, especially with the first dose. Do no t operate machinery or drive while under the effects of the medication. Do not combine the medication with alcohol, or with any other medication without talking to your doctor. FOLLOW-UP CARE: If you have been referred to a physician for follow-up care, call the physicians office for an appointment as you were instructed or within the next two days. If you experience worsening or a significant change in your symptoms, notify the physician immediately or return to the Emergency Department at any time for re-evaluation. Prescriptions: Diphenhydramine HCl [Benadryl 50 mg Capsule] 1 cap PO BID #12 capsule Prednisone [Deltasone 20 mg Tablet] 2 tab PO DAILY 10 Days #20 tablet Famotidine [Pepcid 20 mg Tablet] 20 mg PO DAILY #12 tablet Forms: Elevated Blood Pressure Referrals: [facility] [Provider Group] - Follow up as needed [facility] [Provider Group] - Follow up as needed [facility] [Provider Group] - Follow up as needed
== END 2019-09-19 10:25 | disposition home or self-care (01) ==
LOC: ER 09:54
DX: L23.7 Allergic contact dermatitis due to plants, except food (principal)
CPT/HCPCS: 99282; J3490; J7512

== ENCOUNTER 2019-12-25 16:16 | Emergency (ER) | payer MEDICAID ==
[2019-12-25 16:51] VITALS: BP 121/90
[2019-12-25] MEDS ORDERED: MUPIROCIN 2% OINTMENT 22 GM TP ONE (17:11)
[2019-12-25] MEDS ORDERED: NYSTATIN/TRIAMCIN OINTMENT 15 GM TP ONE (17:13)
--- NOTE | 2019-12-25 17:17 | ER Document Report ---
ED Skin Rash/Insect Bite/Abscs - General Chief Complaint: Skin Problem Stated Complaint: LEFT ARM PAIN Time Seen by Provider: 12/25/19 17:08 Primary Care Provider: [facility] [Provider [facility]] - Follow up as needed [facility] [Provider [facility]] - Follow up as needed MOHINI SHEIKH MD [Primary Care Provider] - Follow up as needed Mode of Arrival: Ambulatory Information source: Patient Notes: 24 yo female presents to ed for circular rash to left anticubital that is now scabbed off. She states she has been scratching this rash because it was itchy and now it is painful. She states she scratched the top was bleeding. It does look like her ringworm is now infected with probable impetigo due to her scratching the ringworm. I have treated her with Bactroban and Mycolog. I have instructed her to use the Bactroban wait 3 hours and then use the Mycolog. She is to do this twice a day. She is to wash it with soap and water each time before she puts the creams on. Patient did verbalize understanding and agreement with this treatment plan. I did explain to her that ringworm is very contagious as well as impetigo and that if she continues to scratch it it will spread all over her body. TRAVEL OUTSIDE OF THE [place] IN LAST 30 DAYS: No - HPI Patient complains to provider of: Skin rash/lesion, Tender/swollen area Onset: Last week Onset/Duration: Gradual, Worse Quality of pain: Sharp Severity: Mild - 1 when she does not move her arm 3 when she does Skin Character: Rash - Circular scaly rash that now has some scabs on it due to her scratching it and it become an infected, Tenderness Quality of rash: Itchy, Painful Identify cause: Yes Exacerbated by: Movement Relieved by: Denies Similar symptoms previously: No Recently seen / treated by doctor: No - Related Data Allergies/Adverse Reactions: No Known Allergies Allergy (Verified 12/25/19 17:11) Past Medical History - General Information source: Patient - Social History Smoking Status: Never Smoker Chew tobacco use (# tins/day): No Frequency of alcohol use: None Drug Abuse: None Family History: Reviewed & Not Pertinent Patient has suicidal ideation: No Patient has homicidal ideation: No - Past Medical History Cardiac Medical History: Reports: None Pulmonary Medical History: Reports: None EENT Medical History: Reports: None Neurological Medical History: Reports: None Endocrine Medical History: Reports: None Renal/ Medical History: Reports: None Malignancy Medical History: Reports: None GI Medical History: Reports: None Musculoskeletal Medical History: Reports None Skin Medical History: Reports None Psychiatric Medical History: Reports: None Traumatic Medical History: Reports: None Infectious Medical History: Reports: None Surgical Hx: Negative Past Surgical History: Reports: None - Immunizations Immunizations up to date: Yes Review of Systems - Review of Systems Constitutional: No symptoms reported EENT: No symptoms reported Cardiovascular: No symptoms reported Respiratory: No symptoms reported Gastrointestinal: No symptoms reported Genitourinary: No symptoms reported Female Genitourinary: No symptoms reported Musculoskeletal: No symptoms reported Skin: Rash - Scaly circular rash to the left antecubital that is now about 6 spots and has scabs from her scratching until it bleeds Hematologic/Lymphatic: No symptoms reported Neurological/Psychological: No symptoms reported Physical Exam - Vital signs Vitals: Temp Pulse Resp BP Pulse Ox 98.1 F 61 16 121/90 H 100 12/25/19 16:44 12/25/19 16:44 12/25/19 16:44 12/25/19 16:44 12/25/19 16:44 Interpretation: Normal - General General appearance: Appears well, Alert - HEENT Head: Normocephalic, Atraumatic Eyes: Normal Pupils: PERRL - Respiratory Respiratory status: No respiratory distress Chest status: Nontender Breath sounds: Normal Chest palpation: Normal - Cardiovascular Rhythm: Regular Heart sounds: Normal auscultation Murmur: No - Abdominal Inspection: Normal Distension: No distension Bowel sounds: Normal Tenderness: Nontender Organomegaly: No organomegaly - Back Back: Normal, Nontender - Extremities General upper extremity: Normal inspection, Nontender, Normal color, Normal ROM, Normal temperature General lower extremity: Normal inspection, Nontender, Normal color, Normal ROM, Normal temperature, Normal weight bearing. No: Marixa's sign - Neurological Neuro grossly intact: Yes Cognition: Normal Orientation: AAOx4 Gavin Coma Scale Eye Opening: Spontaneous Avalon Coma Scale Verbal: Oriented Avalon Coma Scale Motor: Obeys Commands Avalon Coma Scale Total: 15 Speech: Normal Motor strength normal: LUE, RUE, LLE, RLE Sensory: Normal - Psychological Associated symptoms: Normal affect, Normal mood - Skin Skin Temperature: Warm Skin Moisture: Dry Skin Color: Normal Location of irregularity: Extremities Character of irregularity: Erythematous, Other - Circular Irregularity with: Tenderness, Crusting Course - Vital Signs Vital signs: Temp Pulse Resp BP Pulse Ox 98.1 F 61 16 121/90 H 100 12/25/19 16:44 12/25/19 16:44 12/25/19 16:44 12/25/19 16:44 12/25/19 16:44 Discharge - Discharge Clinical Impression: ringworm to left anticubital, infection to ringworm Condition: Stable Disposition: HOME, SELF-CARE Additional Instructions: Ringworm (Tinea Corporis) You have a fungal infection of the skin, called tinea corporis. This is sometimes called "ringworm." because it tends forms an enlarging ring on the skin. The infection results from exposure to another person or an animal carrying the fungus, but it is only mildly contagious. There can be mild itching, or sometimes no symptoms at all. The infection is usually treated with antifungal cream. This is applied two or three times daily. Healing may take two or three weeks. Occasionally, oral medication is necessary, for example, when the infection if very large, or if fungus involves the scalp or nails. Fingernail or toenail infections are very difficult to eradicate, often requiring many weeks of treatment. Return for re-examination if your symptoms change significantly -- for example, if you develop fever or chills, red streaks, increasing tenderness, swelling, or blisters at the infection site. Impetigo You have a skin infection called impetigo. This infection is caused by germs growing between the skin layers. It spreads easily and is quite contagious. The usual treatment is with oral antibiotics, along with washing the sores and application of an antibiotic ointment. There's a new prescription antibiotic ointment which may allow some cases of impetigo to be treated without pills. Healing takes about a week. All involved areas should recover with no scarring. If there is significant worsening, or if new symptoms (such as dark urine, fever, chills, or red streaks) arise, call the doctor or return for re- examination. Soap Cleansing Gently wash the wound daily using a mild soap (like Ivory, Phisoderm, Neutrogena). Use warm water, rubbing gently until all debris, ooze, and crusting have been washed from the wound. Allow to dry briefly (about 10 minutes) after cleaning. Repeat this cleansing at least three times a day for the first two days and then once or twice a day. Bactroban Ointment Bactroban is very effective against the germs that cause infection within the skin. It's useful for impetigo and other superficial infections. Deeper in fections require antibiotics by mouth or by shot. Apply the medicine three times a day for one week, or longer if your doctor has advised it. Stop the medicine and call your doctor if you develop large blisters, severe itching, increasing pain, swelling, fever, or spreading redness. Prescriptions: Mupirocin [Bactroban 2% Ointment 22 gm] 1 applic TP BID #1 tube Nystatin/Triamcin [Mycolog-II Ointment] 1 applic TP BID #1 tube Referrals: MOHINI SHEIKH MD [Primary Care Provider] - Follow up as needed [facility] [[facility]] - Follow up as needed [facility] [Provider [facility]] - Follow up as needed
[2019-12-25] MEDS ORDERED: NYSTATIN/TRIAMCIN OINTMENT 15 GM ONE (17:33)
== END 2019-12-25 17:57 | disposition home or self-care (01) ==
LOC: ER 16:16
DX: B35.4 Tinea corporis (principal); M79.602 Pain in left arm
CPT/HCPCS: 99283; J3490 ×2

== ENCOUNTER 2020-01-05 12:21 | Emergency (ER) | payer MEDICAID ==
[2020-01-05 12:29] VITALS: BP 124/62
--- NOTE | 2020-01-05 12:42 | ER Document Report ---
HPI - HPI Patient complains to provider of: skin rash Time Seen by Provider: 01/05/20 12:33 Onset: Other - 3 days Onset/Duration: Persistent Pain Level: 0 Context: Patient with rash around the fingers and toes of bilateral hands and feet that started 3 days ago. Patient denies any new foods medications or detergents although does report recently getting a manicure and pedicure. Patient states that a hearing health technician only used a dremel and then she had a fill in performed. Patient is adamant no new chemicals were used. Associated Symptoms: Other - Skin rash around nails Exacerbated by: Denies Relieved by: Denies - ROS ROS below otherwise negative: Yes Systems Reviewed and Negative: Yes All other systems reviewed and negative - REPRODUCTIVE Reproductive: DENIES: : - DERM Skin Color: Normal Skin Problems: Rash Past Medical History - General Information source: Patient - Social History Smoking Status: Never Smoker Chew tobacco use (# tins/day): No Frequency of alcohol use: None Drug Abuse: None Family History: Reviewed & Not Pertinent Patient has homicidal ideation: No - Medical History Medical History: Negative Surgical Hx: Negative - Immunizations Immunizations up to date: Yes Vertical Provider Document - CONSTITUTIONAL Agree With Documented VS: Yes Exam Limitations: No Limitations General Appearance: WD/WN, No Apparent Distress - INFECTION CONTROL TRAVEL OUTSIDE OF THE [place] IN LAST 30 DAYS: No - HEENT HEENT: Atraumatic, Normocephalic - NECK Neck: Normal Inspection, Supple - RESPIRATORY Respiratory: Breath Sounds Normal, No Respiratory Distress - CARDIOVASCULAR Cardiovascular: Regular Rate, Regular Rhythm - MUSCULOSKELETAL/EXTREMETIES Musculoskeletal/Extremeties: MAEW - NEURO Level of Consciousness: Awake, Alert, Appropriate Motor/Sensory: No Motor Deficit - DERM Integumentary: Warm, Dry, Rash - Maculopapular rash to distal tips of fingers and toes of bilateral hands primarily around the nail margin Course - Re-evaluation Re-evalutation: 01/05/20 12:43 Patient with recent manicure and pedicure. Patient denies any use of chemicals to the hands or toes with her recent manicure and pedicure. Discussed with patient concern about likely contact dermatitis given the distribution pattern to her skin lesions. Patient encouraged to wear natural nails without any jamaican and to follow-up with dermatology for any persistent pain or problems - Vital Signs Vital signs: Temp Pulse Resp BP Pulse Ox 98.1 F 74 16 124/62 100 01/05/20 12:28 01/05/20 12:28 01/05/20 12:28 01/05/20 12:28 01/05/20 12:28 Discharge - Discharge Clinical Impression: Dermatitis Condition: Stable Disposition: HOME, SELF-CARE Instructions: Contact Dermatitis ([facility]), Corticosteroid Medication ([facility]) Additional Instructions: Return immediately for any new or worsening symptoms Followup with your primary care provider, call tomorrow to make a followup appointment Follow-up with dermatology for any persistent problems Avoid use of harsh chemicals to your hands or nails. Prescriptions: Prednisone [Deltasone 10 mg Tablet] 10 mg PO ASDIR #21 tablet Referrals: MOHINI SHEIKH MD [ACTIVE STAFF] - Follow up as needed FRANCISCO J MEEHAN DO [ACTIVE STAFF] - Follow up as needed
== END 2020-01-05 12:46 | disposition home or self-care (01) ==
LOC: ER 12:21
DX: L30.9 Dermatitis, unspecified (principal)
CPT/HCPCS: 99283

== ENCOUNTER 2020-02-20 10:19 | Emergency (ER) | payer MEDICAID ==
[2020-02-20 11:08] VITALS: BP 122/80
--- NOTE | 2020-02-20 11:15 | ER Document Report ---
ED Skin Rash/Insect Bite/Abscs - General Chief Complaint: Skin Problem Stated Complaint: SKIN ISSUE ON FEET Time Seen by Provider: 02/20/20 11:08 Primary Care Provider: TANVIR PANIAGUA DPM [ACTIVE STAFF] - Follow up as needed SALLY SEWELL [NO LOCAL MD] - Follow up as needed Mode of Arrival: Ambulatory Information source: Patient Notes: 24-year-old female presented to ED for complaint of nail fungus to both feet. It is very much so under the first 4 toes both feet under the nails. She states is not quite started on the little toe yet. It has been there a long time obviously. She states she came in today to see if we could treat the nail fungus. I have explained to her that nail fungus is something that is a long- term treatment and she needs to go to a scrap preparation supervisor where they monitor the treatment. Patient has verbalized that she has Medicaid and I gave did give her the name and number of a scrap preparation supervisor but told her if she called her Medicaid number they could tell her who she could go to. Constitutional: Negative for fever. Cardiovascular: Negative for chest pain. Respiratory: Negative for shortness of breath. Gastrointestinal: Negative for abdominal pain, vomiting or diarrhea. Genitourinary: Negative for dysuria. Musculoskeletal: Negative for back pain. Skin: Negative for rash. Fungus under the first 4 toes nail on both feet Neurological: Negative for headaches, weakness or numbness. 10 point ROS negative except as marked above and in HPI. PHYSICAL EXAMINATION: GENERAL: Well-appearing, well-nourished and in no acute distress. HEAD: Atraumatic, normocephalic. EYES: Pupils equal round extraocular movements intact, conjunctiva are normal. ENT: Nares patent NECK: Normal range of motion LUNGS: No respiratory distress Musculoskeletal: Normal range of motion NEUROLOGICAL: Normal speech, normal gait. PSYCH: Normal mood, normal affect. SKIN: Warm, Dry, normal turgor, no rashes or lesions noted. Nail fungus under the nails of the first 4 toes both feet very advanced TRAVEL OUTSIDE OF THE [place] IN LAST 30 DAYS: No - HPI Patient complains to provider of: Other - Nail fungus Onset: Other Onset/Duration: Gradual Severity: None Pain Level: Denies Skin Character: Other - Nail fungus Exacerbated by: Denies Relieved by: Denies Similar symptoms previously: Yes Recently seen / treated by doctor: No - Related Data Allergies/Adverse Reactions: No Known Allergies Allergy (Verified 02/20/20 11:07) Past Medical History - General Information source: Patient - Social History Smoking Status: Never Smoker Frequency of alcohol use: Social Drug Abuse: None Family History: Reviewed & Not Pertinent Patient has suicidal ideation: No Patient has homicidal ideation: No - Past Medical History Cardiac Medical History: Reports: None Pulmonary Medical History: Reports: None EENT Medical History: Reports: None Neurological Medical History: Reports: None Endocrine Medical History: Reports: None Renal/ Medical History: Reports: None Malignancy Medical History: Reports: None GI Medical History: Reports: None Musculoskeletal Medical History: Reports None Skin Medical History: Reports Hx Eczema, Reports Hx Psoriasis Psychiatric Medical History: Reports: None Traumatic Medical History: Reports: None Infectious Medical History: Reports: None - Immunizations Immunizations up to date: Yes Physical Exam - Vital signs Vitals: Temp Pulse Resp BP Pulse Ox 98.7 F 64 14 122/80 100 02/20/20 11:06 02/20/20 11:06 02/20/20 11:06 02/20/20 11:06 02/20/20 11:06 Course - Vital Signs Vital signs: Temp Pulse Resp BP Pulse Ox 98.7 F 64 14 122/80 100 02/20/20 11:06 02/20/20 11:06 02/20/20 11:06 02/20/20 11:06 02/20/20 11:06 Discharge - Discharge Clinical Impression: Nail fungus Condition: Stable Disposition: HOME, SELF-CARE Additional Instructions: You were seen today for fungus under your toenails. We do not treat toenail fungus in the emergency room because this is a long-term treatment. Is very important that you go to the scrap preparation supervisor because they need to monitor you while you take the medicine that she needs to treat the nail fungus. It is important that she do not go barefooted where other people are walking because this is contagious and other people can get it. Keep your feet clean and dry at all times until you can get into the scrap preparation supervisor. FOLLOW-UP CARE: If you have been referred to a physician for follow-up care, call the physicians office for an appointment as you were instructed or within the next two days. If you experience worsening or a significant change in your symptoms, notify the physician immediately or return to the Emergency Department at any time for re-evaluation. Referrals: DONATO,NO [NO LOCAL MD] - Follow up as needed TANVIR PANIAGUA DPM [ACTIVE STAFF] - Follow up as needed
== END 2020-02-20 11:15 | disposition home or self-care (01) ==
LOC: ER 10:19
DX: B35.1 Tinea unguium (principal)
CPT/HCPCS: 99282